=== PATIENT | female | born 1990 | race African-American/Black ===

== ENCOUNTER 2021-02-23 06:28 | Emergency (ER) | payer MEDICAID, OTHER ==
[~2021-02-23] VITALS: Ht 160 cm; Wt 99.8 kg
[2021-02-23 07:49] VITALS: BP 146/104
== END 2021-02-23 08:47 | disposition home or self-care (01) ==
LOC: ER 06:28
DX: S16.1XXA Strain of muscle, fascia and tendon at neck level, initial encounter (principal); S39.012A Strain of muscle, fascia and tendon of lower back, initial encounter; V43.52XA Car driver injured in collision with other type car in traffic accident, initial encounter; Y93.89 Activity, other specified; Y92.410 Unspecified street and highway as the place of occurrence of the external cause; Y99.8 Other external cause status
CPT/HCPCS: 72040